=== PATIENT | female | born 1980 | race Hispanic/Latino ===

== ENCOUNTER 2024-05-17 19:09 | Emergency (ER) | payer SELFPAY ==
[2024-05-17 19:17] VITALS: BP 149/99; PULSE 87; RESP 14; TEMP 36.9; O2SAT 98
--- NOTE | 2024-05-17 19:28 | ED.ABDPAIN ---
HPI - Abdominal Pain General Chief Complaint: Abdominal Pain Stated Complaint: Abdominal Pain Time Seen by Provider: 05/17/24 19:28 Source: patient Mode of arrival: ambulatory Limitations: no limitations History of Present Illness HPI narrative: 44 yo F presents with c/o ABD bloating, constipation, fullness when eating for 3 days. Afebrile. Tried a tea and not helping. Does not know name of tea. All systems reviewed and negative except as noted above. Related Data Allergies Allergy/AdvReac Type Severity Reaction Status Date / Time No Known Allergies Allergy Verified 05/17/24 19:11 Review of Systems Review of Systems: CONSTITUTIONAL: Denies fever, chills, or sweats. EYES: Denies visual changes, redness, or discharge. ENT: Denies rhinorrhea, congestion, sore throat, or otalgia. CARDIOVASCULAR: Denies chest pain, palpitations, or edema. RESPIRATORY: Denies cough or dyspnea. GASTROINTESTINAL: Denies abdominal pain, nausea, vomiting, or diarrhea. reports abdominal bloating, fullness, constipation GENITOURINARY: Denies dysuria or hematuria. SKIN: Denies rash or itching. MUSCULOSKELETAL: Denies back pain, joint pain, or myalgia. NEUROLOGIC: Denies headache, numbness, or weakness. PSYCHIATRIC: Denies anxiety or depression. All other systems reviewed are negative, except as documented in HPI. PMFSH Comments At time of signature, agree with nursing past medical, surgical, social and family history. There is no relevant family history pertinent to the presenting complaint. Exam Narrative: GENERAL: This is a well-nourished, well-developed patient, in no apparent distress. HEAD: normocephalic, atraumatic. EYES: PERRL. Sclera clear/white. Vision is grossly intact. EARS: External ears normal NOSE: External nose normal NECK: Neck supple, non-tender without lymphadenopathy, masses or thyromegaly. CARDIOVASCULAR: Regular rate and rhythm without murmurs, gallops, or rubs. RESPIRATORY: Clear to auscultation. Breath sounds equal bilaterally. No wheezes, rales, or rhonchi. GASTROINTESTINAL: Abdomen soft, non-tender, nondistended. Bowel sounds are hypoactive. No hepato-splenomegaly, or palpable masses. No guarding. SKIN: warm, Dry, intact with no suspicious lesions or rash, good texture and turgor. NEURO: awake, alert, and oriented to person, place and time. There were no obvious focal neurologic abnormalities. EXTREMITIES: No joint tenderness, effusion, or edema noted. Course Course Level of Care: Express Care Visit Vital Signs Vital signs: Vital Signs Temperature 36.9 C 05/17/24 19:17 Pulse Rate 87 05/17/24 19:17 Respiratory Rate 14 05/17/24 19:17 Blood Pressure 149/99 H 05/17/24 19:17 Pulse Oximetry 98 05/17/24 19:17 Oxygen Delivery Room Air 05/17/24 19:17 Temperature 36.9 C 05/17/24 19:17 Pulse Rate 87 05/17/24 19:17 Respiratory Rate 14 05/17/24 19:17 Blood Pressure 149/99 H 05/17/24 19:17 Pulse Oximetry 98 05/17/24 19:17 Oxygen Delivery Room Air 05/17/24 19:17 reviewed MDM - Abdominal Pain MDM Narrative Medical decision making narrative: discussed x-ray results with pt. Sent colace and miralax to pharmacy to treat constipation. Discussed with pt. pt well appearing, nontoxic. Please be advised this is a medical document. It is intended for [id number] communication. It is written in medical language and may contain unfamiliar abbreviations or verbiage. Medical documents are intended to carry relevant information, facts as evident, and the clinical opinion of the practitioner at the time of the encounter. This report may have been done utilizing a voice recognition system. Attempts have been made to correct errors. However, there may be uncorrected grammatical, spelling, and recognition errors present. The file time of this note does not necessarily represent the time of service. Imaging Data Radiologist's impression: ITS Impressions Abdomen X-Ray 05/17/24 20:06 IMPRESSION: NO ACUTE ABDOMINAL FINDINGS. Constipation. Discharge Plan Discharge Clinical Impression: Constipation Qualifiers: Constipation type: unspecified constipation type Qualified Code(s): K59.00 - Constipation, unspecified Patient Disposition: Home, Self-Care Condition: Stable Instructions: Constipation (ED) Additional Instructions: the x-ray of your abdomen shows that your constipated. Take medications as prescribed. Drink at least 64 oz of water a day. Increase daily fiber such as eating an apple a day. exercise for at least 30 minutes today. Patient Language: Yoruba Prescriptions: New docusate sodium [Colace] 100 mg capsule 100 mg PO BID 30 Days Qty: 60 0RF polyethylene glycol 3350 [Miralax] 17 gram/dose powder 17 g PO DAILY PRN (Reason: constipation) Qty: 119 0RF Follow-up/Referrals: Zach,HAIDER Mckenna [Primary Care Provider] - Time of Disposition: 20:13
== END 2024-05-17 20:20 | disposition home or self-care (01) ==
PROVIDERS: Emergency Provider Nurse Practitioner Family; PCP Registered Nurse
DX: K59.00 Constipation, unspecified (principal)
CPT/HCPCS: 74018; 99203; G0463